=== PATIENT | male | born 1965 | race Caucasian/White ===

== ENCOUNTER 2023-02-19 07:10 | Emergency (ER) | payer BC, SELFPAY ==
[2023-02-19 07:16] VITALS: BP 142/80; PULSE 93; RESP 18; TEMP 36.7; O2SAT 99
[2023-02-19 09:30] VITALS: BP 135/90; PULSE 60; RESP 16; O2SAT 96
--- NOTE | 2023-02-19 10:52 | ED.GENADULT ---
HPI - General Adult General Chief complaint: Skin/Abscess/Foreign Body Stated complaint: infection in RLE Time Seen by Provider: 02/19/23 08:36 History of Present Illness HPI narrative: 57-year-old male presented the emergency department for evaluation of worsening leg wound. Patient states 2 weeks ago he had an injury to his leg and had been started on antibiotics as outpatient. Patient states he has been started on clinda 2 days ago. Patient states that the leg wound is still persistent and he was having increased pain. Related Data Home Medications Medication Instructions Recorded Confirmed alprazolam 2 mg tablet mg 02/19/23 02/19/23 cyclopentolate 1 % eye drops drp 02/19/23 ondansetron HCl 4 mg tablet mg 02/19/23 Allergies Allergy/AdvReac Type Severity Reaction Status Date / Time Penicillins Allergy Unknown Unknown Verified 02/19/23 07:31 Review of Systems Review of Systems: All systems reviewed & are unremarkable except as noted in HPI and below Exam Narrative: APPEARANCE: Well appearing, no pain, no distress, well-nourished. HEAD: normocephalic, atraumatic. EYES: PERRLA/EOMI, conjunctivae clear. NOSE: Normal no drainage NECK: Supple. No adenopathy, no masses. RESPIRATORY: Airway patent, respirations nonlabored. Clear to auscultation bilaterally, no rales, rhonchi, wheezing. CARDIOVASCULAR: Regular rate and rhythm without murmurs rubs or gallops. ABDOMINAL: Soft, nontender, nondistended, normal bowel sounds MUSCULOSKELETAL: Moves all extremities. Strength/ROM intact, No edema, No calf tenderness. NEURO: Alert. Cranial nerves II through XII intact. Grossly intact SKIN: Area of erythema approximately 6 cm in diameter, no fluctuance or purulent discharge., Tenderness to palpation, no significant edema. Course Course Emergency Course: 57-year-old male presented the ED for evaluation of cellulitis to the right leg. Wound has minimal erythema with no fluctuance. Patient was started on clindamycin on Thursday but feels it is not improving. Patient did have an underlying penicillin allergy listed but patient is not even sure if he has a penicillin allergy. Patient was okay with the plan for treating with Rocephin and Keflex due to the limited cross-reactivity. Vital Signs Vital signs: Vital Signs Temperature 98.0 F 02/19/23 07:16 Pulse Rate 93 02/19/23 07:16 Respiratory Rate 18 02/19/23 07:16 Blood Pressure 142/80 H 02/19/23 07:16 Pulse Oximetry 99 02/19/23 07:16 Oxygen Delivery Room Air 02/19/23 07:16 Temperature 98.0 F 02/19/23 07:16 Pulse Rate 60 02/19/23 09:30 Respiratory Rate 16 02/19/23 09:30 Blood Pressure 135/90 02/19/23 09:30 Pulse Oximetry 96 02/19/23 09:30 Oxygen Delivery Room Air 02/19/23 07:16 Medical Decision Making Differential Diagnosis Differential Diagnosis: Cellulitis, abscess Vital Signs Vital Signs: Vital Signs Temperature 98.0 F 02/19/23 07:16 Pulse Rate 93 02/19/23 07:16 Respiratory Rate 18 02/19/23 07:16 Blood Pressure 142/80 H 02/19/23 07:16 Pulse Oximetry 99 02/19/23 07:16 Oxygen Delivery Room Air 02/19/23 07:16 Temperature 98.0 F 02/19/23 07:16 Pulse Rate 60 02/19/23 09:30 Respiratory Rate 16 02/19/23 09:30 Blood Pressure 135/90 02/19/23 09:30 Pulse Oximetry 96 02/19/23 09:30 Oxygen Delivery Room Air 02/19/23 07:16 Discharge Plan Discharge Clinical Impression: Cellulitis Qualifiers: Site of cellulitis: extremity Site of cellulitis of extremity: lower extremity Laterality: right Qualified Code(s): L03.115 - Cellulitis of right lower limb Patient Disposition: Home, Self-Care Condition: Stable Instructions: Antibiotic Form, Cellulitis (ED) Additional Instructions: Stop taking the clinda and start taking Keflex as directed. Have close follow-up with your primary care physician. Prescriptions: New cephalexin 500 mg capsule 500 mg PO Q12H 10 Days Qty:
== END 2023-02-19 12:13 | disposition home or self-care (01) ==
PROVIDERS: Emergency Provider Emergency Medicine; PCP Emergency Medicine
DX: L03.115 Cellulitis of right lower limb (principal)
CPT/HCPCS: 96365; 99284; J0696